=== PATIENT | male | born 1965 | race Caucasian/White ===

== ENCOUNTER 2019-09-07 09:44 | Emergency (ER) | payer SELFPAY ==
[2019-09-07 09:49] VITALS: BP 117/78; PULSE 77; RESP 18; TEMP 36.9; O2SAT 98
--- NOTE | 2019-09-07 10:06 | ED.GENADUL_ITS ---
Discharge Plan Disposition Patient Disposition: HOME Condition: Improving Discharge Details Chief Complaint: GenMedical Clinical Impression: Influenza B Primary Care Provider: Nando Wood ED Provider: Suhail Tavarez Home Meds and New Rx's Prescriptions: New oseltamivir [Tamiflu] 75 mg capsule 75 mg PO BID 5 Days Qty: 9 RF: 0 No Action Spiriva with HandiHaler 1 PUFF capsule, w/inhalation device 1 cap Inhalation DAILY RF: 0 budesonide-formoterol [Symbicort] 60 PUFF HFA aerosol inhaler 2 puff Inhalation BID RF: 0 Discharge Instructions Instructions: Influenza (ED) Additional Instructions: Please go directly to [facility] for assistance in filling your Tamif selam prescription. May use provided inhaler 2 puffs every 4 hours as needed for shortness of breath, wheeze, or cough. Small, frequent sips of fluids to maintain hydration. Tylenol 650 to 1000 mg every 6 hours as needed for fever, aches, pain. Please take Tamiflu as prescribed. Stand Alone Forms: Work Release Medical Decision Making 54-year-old male smoker presents with day 2-1/2 of fever, chills, cough. He has been able to take liquids and solids without difficulty. He works in a local [employer] and due to his illness, sought evaluation in the ER today. He is afebrile with normal vital signs and normal oxygenation. His exam does reveal a few end expiratory wheeze and states that he has run out of prescribed inhaler. Patient had influenza screening performed, was referred for chest x-ray, taught use of albuterol inhaler with spacer. Chest x-ray without focal findings. The patient is positive for influenza B. As it is day 2 I feel he is appropriate to start Tamiflu. [facility] and therefore was evaluated by care management. They have arranged for the patient's prescription to be filled at [facility]. He is improving. We will discharge at this time. Lab Data Lab results reviewed: Yes I reviewed the patient's lab results. Labs: Flu B + HPI General Mode of arrival: ambulatory . Date/Time Provider Initiated Documentation: 09/07/19 09:47 . Limitations to Documentation: no limitations . Information obtained by: patient . History of Present Illness 54 year old M presents to the emergency department with the chief complaint of Fever, cough, described as moderate, and is localized to the chest. Patient reports no radiation. Patient started experiencing this day(s) and it has been intermittent. No relieving factors improve symptom(s), No exacerbating factors reported . Patient notes cough, fever/chills and malaise. Patient did receive the following treatments prior to arrival, none Related Data Home Medications Medication Instructions Recorded Confirmed budesonide-formoterol [Symbicort 2 puff INHALATION BID 02/12/17 09/07/19 160/4.5 Mcg Inhaler] tiotropium bromide [Spiriva 1 cap INHALATION DAILY 02/12/17 09/07/19 Handihaler] oseltamivir [Tamiflu] 75 mg PO BID 5 Days #9 cap 09/07/19 Previous Rx's Medication Instructions Recorded oseltamivir [Tamiflu] 75 mg PO BID 5 Days #9 cap 09/07/19 Allergies Allergy/AdvReac Type Severity Reaction Status Date / Time No Known Allergies Allergy Unverified 09/07/19 09:53 General Stated Complaint: GenMedical MATEO: 3 Review of Systems Narrative: Works at local [employer], [facility], declines referral to social work professor at this time. No vomiting. No shortness of breath. Does continue to smoke. 6 systems reviewed and otherwise negative. [facility] Social History Smoking/Tobacco Use Status: Current every day Tobacco Type: cigarettes Alcohol Intake: never Drug use: Never Substance use type: does not use Do you feel safe at home: Yes Do you feel safe in your relationship?: Yes Exam Narrative Exam Narrative: GEN: awake, alert, oriented 3. Pleasant, well groomed, interactive. HEAD: Normocephalic, atraumatic ENT: Mucous membranes moist, oropharynx unremarkable, External ear exam unremarkable EYES: PERRL, EOMI NECK: Full ROM, no KEENAN, no menigismus CHEST/RESP: Nontender, clear to auscultation bilateral, few scattered end expiratory wheeze CARDIOVASCULAR: RRR, no murmur, rub tyler. 2+ Rad pulse bilateral ABDOMEN: Soft, nontender, no mass. +Bowel sounds EXT: Full ROM, no edema, no rash Neuro: Grossly normal neurologic exam, conversant, interactive. Psych: Speech fluent, thoughts congruent, affect normal Course Vital Signs Vital signs: Vital Signs Temperature 36.9 C 09/07/19 09:49 Pulse 77 09/07/19 09:49 Respiratory Rate 18 09/07/19 09:49 Blood Pressure 117/78 09/07/19 09:49 Pulse Oximetry 98 09/07/19 09:49 Temperature 36.9 C 09/07/19 09:49 Temperature Source Temporal Artery Scan 09/07/19 09:49 Pulse 77 09/07/19 09:49 Respiratory Rate 18 09/07/19 09:49 Respiratory Effort 09/07/19 09:54 Blood Pressure 117/78 09/07/19 09:49 Blood Pressure Position Sitting 09/07/19 09:49 Pulse Oximetry 98 09/07/19 09:49 Oxygen Delivery Method Room Air 09/07/19 09:49 Oxygen Flow Rate 0 09/07/19 09:49 Pain Level 5 09/07/19 09:49 Lab/Test Results Lab/Test Results: 09/07/19 09:52 Nasopharynx Influenza Types A,B Antigen - Pending
[2019-09-07] MEDS: Albuterol HFA 8 GM 60 PUFF INH IH (10:10)
[2019-09-07 10:13] VITALS: RESP 20
--- NOTE | 2019-09-07 10:21 | DI.RAD_ITS ---
EXAM: XR CHEST 2V PA LATERAL CLINICAL HISTORY: Fever and cough, smoker TECHNIQUE: 2D digital imaging was performed. COMPARISON: No exams were available for comparison FINDINGS: The cardiac and mediastinal contours have a normal appearance. The lungs are well inflated and clear . No infiltrate, effusion or pneumothorax is seen. No spine or rib fracture is identified. IMPRESSION: Negative chest x-ray.
[2019-09-07] MEDS: Oseltamivir 75 MG CAP PO (11:02)
[2019-09-07] MEDS: Acetaminophen 500 MG TAB 1000 MG PO (11:58)
--- NOTE | 2019-09-07 12:20 | PDOC.ERCMPRO ---
- If Service Date Differs Date of service: 09/07/19 Time of Service: 12:20 Care Management Progress Note JOEL meets with Pete at the request of ED provider. Pete has been diagnosed with Influenza and his Medicaid has lapsed, so he is unable to fill the prescription for Tamiflu. CM contacts Bahman at [employer] who agrees to pay for the prescription out of the Unmet Needs Funds. JOEL also contacts [employer] to inquire if Pete might qualify for a motel stay while he recovers from the flu, as he is currently homeless. I, however, am unable to speak with anyone, so a message is left for Xiomara at [employer].
== END 2019-09-07 12:17 | disposition home or self-care (01) ==
PROVIDERS: Emergency Provider Emergency Medicine; PCP Physician Assistant
DX: L02.31 Cutaneous abscess of buttock (principal); L03.317 Cellulitis of buttock
CPT/HCPCS: 87449; 99283; 71046

== ENCOUNTER 2019-09-12 07:46 | Emergency (ER) | payer SELFPAY ==
[2019-09-12 07:48] VITALS: BP 125/74; PULSE 62; TEMP 36.8; O2SAT 99
--- NOTE | 2019-09-12 07:53 | W.ED.GENAD ---
Discharge Plan Disposition Patient Disposition: HOME Condition: Good Discharge Details Chief Complaint: Recheck Clinical Impression: Well adult exam Primary Care Provider: Nando Wood ED Provider: Jewell Alan Home Meds and New Rx's Prescriptions: Continued Spiriva with HandiHaler 1 PUFF capsule, w/inhalation device 1 cap Inhalation DAILY RF: 0 budesonide-formoterol [Symbicort] 60 PUFF HFA aerosol inhaler 2 puff Inhalation BID RF: 0 Discharge Instructions Additional Instructions: Continue to encourage water intake. Your exam today is reassuring with no acute findings to suggest acute illness. Please return with any new or worsening symptoms. Stand Alone Forms: Work Release Referrals: Nando Wood [Primary Care Provider] - Medical Decision Making Patient is a 54 year old male presenting today requesting work note to return to work. Patient diagnosed with influenza. JFinished course of tamiflu and feels back to baseline with no persistent symptoms. Feels much improved, exam benign. Work note given. Advised f/u with PCP as needed. He will return with any new/worsening symptoms. All questions and concerns were addressed. HPI General Mode of arrival: ambulatory. Date/Time Provider Initiated Documentation: 09/12/19 07:53. Limitations to Documentation: no limitations. Information obtained by: patient and RN notes reviewed. History of Present Illness 54 year old M presents to the emergency department with the chief complaint of presents for clearance to return to work after being treated for influenza, described as mild (feels improved), Patient started experiencing this week(s) (1) and it has been now resolved. Medication improves symptom(s), (took course of tamiflu) No exacerbating factors reported . Patient notes no other symptoms.. Patient did receive the following treatments prior to arrival, other (tamiflu) Related Data Home Medications Medication Instructions Recorded Confirmed Spiriva with HandiHaler 1 cap INHALATION DAILY 02/12/17 09/07/19 budesonide-formoterol [Symbicort] 2 puff INHALATION BID 02/12/17 09/07/19 Allergies Allergy/AdvReac Type Severity Reaction Status Date / Time No Known Allergies Allergy Unverified 09/07/19 09:53 General Stated Complaint: Recheck MATEO: 5 Review of Systems Constitutional Constitutional: Reports as per HPI, Denies chills, Denies fatigue, Denies fever(s) and Denies headache(s) Eyes Eyes: Reports as per HPI, Denies eye discharge and Denies irritation ENT Ears, Nose, Mouth, and Throat: Reports as per HPI and Denies headache(s) Cardiovascular Cardiovascular: Reports as per HPI, Denies chest pain and Denies dyspnea Respiratory Respiratory: Reports as per HPI and Denies dyspnea Gastrointestinal Gastrointestinal: Reports as per HPI, Denies abdominal pain, Denies change in bowel habits, Denies nausea and Denies vomiting Integumentary/Breasts Skin/Breast: Reports as per HPI and Denies rash Neurologic Neurologic: Reports as per HPI and Denies headache(s) Endocrine Endocrine: Denies fatigue [facility] Social History Smoking/Tobacco Use Status: Current every day Tobacco Type: cigarettes Alcohol Intake: never Drug use: Never Substance use type: does not use Do you feel safe at home: Yes Do you feel safe in your relationship?: Yes Exam Const General: cooperative, healthy appearing, comfortable, no acute distress, well developed and well groomed Nutritional Appearance: average body habitus and well nourished Orientation: alert and awake [facility] Head: normal to inspection, normocephalic and atraumatic Ears: hearing grossly normal bilaterally General nose exam: external nose normal Face and sinus: normal facial exam and face symmetric Mouth: oral mucosae normal and lip normal Eyes General: appearance normal, both eyes and all related structures Resp Effort & Inspection: normal respiratory effort, able to speak in complete sentences and no respiratory distress Auscultation: clear to auscultation bilaterally, no rales, no rhonchi and no wheezes Cardio Rate: regular rate Rhythm: regular rhythm Heart Sounds: S1 normal and S2 normal Skin General skin exam: no rashes or lesions noted Neuro General: alert and awake Cognition: normal cognition Speech: speech normal Gait: normal gait Psych Appearance: grossly normal and well kempt Mental Status: mental status grossly normal Speech and Movement: speech and movement normal Course Vital Signs Vital signs: Vital Signs Temperature 36.8 C 09/12/19 07:48 Pulse 62 09/12/19 07:48 Blood Pressure 125/74 09/12/19 07:48 Pulse Oximetry 99 09/12/19 07:48 Temperature 36.8 C 09/12/19 07:48 Temperature Source Oral 09/12/19 07:48 Pulse 62 09/12/19 07:48 Respiratory Effort Non-Labored 09/12/19 07:50 Blood Pressure 125/74 09/12/19 07:48 Blood Pressure Position Sitting 09/12/19 07:48 Pulse Oximetry 99 09/12/19 07:48 Oxygen Delivery Method Room Air 09/12/19 07:48 Oxygen Flow Rate 0 09/12/19 07:48 Pain Level 0 09/12/19 07:48
== END 2019-09-12 08:01 | disposition home or self-care (01) ==
PROVIDERS: Emergency Provider Physician Assistant; PCP Physician Assistant
DX: Z71.1 Person with feared health complaint in whom no diagnosis is made (principal); Z87.09 Personal history of other diseases of the respiratory system
CPT/HCPCS: 99281

== ENCOUNTER 2022-09-19 18:45 | Outpatient (REF) | payer MEDICAID, SELFPAY ==
[2022-09-19 21:04] LABS: Abs Immature Grans 0.04 10^3/uL (0.0-0.06); Absolute Basophil Count 0.05 10^3/uL (0.0-0.2); Absolute Eosinophil Count 0.04 10^3/uL (0.0-0.7); Absolute Monocyte Count 0.64 10^3/uL (0.1-0.8); Basophils % 0.4; Eosinophils % 0.3; HCT 43.1 % (40.0-50.0); HGB 14.3 g/dL (13.5-17.5); Immature Grans % 0.3; Lymphocytes % 16.5; MCH 32.3 pg (27.0-33.0); MCHC 33.2 % (32.0-36.0); MCV 97 fL (80-95); MPV 10.7 fL (8.0-11.0); Neutrophils % 77.5; Platelet Count 263 10^3/uL (130-400); RBC 4.43 10^6/uL (4.36-5.78); RDW 12.8 % (11.8-14.1); RDW-SD 45.8 fL; WBC 12.72 10^3/uL (4.4-10.8)
[2022-09-19 21:05] LABS: Absolute Neutrophil Count 9.86 10^3/uL (1.2-6.7)
[2022-09-19 21:19] LABS: Hemoglobin A1C 5.8 % (<5.7)
[2022-09-19 21:26] LABS: ALT 27 U/L (16-63); AST 22 U/L (15-37); Albumin 4.4 g/dL (3.4-5.0); Alkaline Phosphatase 124 U/L (46-116); Anion Gap 8.8 mmol/L (3-11); BUN 19 mg/dL (7-18); Bilirubin, Total 0.4 mg/dL (0.2-1.0); CO2 27.2 mmol/L (21.0-32.0); CREATININE 1.1 mg/dL (0.70-1.30); Calcium 9.8 mg/dL (8.5-10.1); Chloride 105 mmol/L (98-107); Estimated GFR 78.79 (mL/min/1.73m2); Glucose 95 mg/dL (74-106); Potassium 3.9 mmol/L (3.5-5.1); Sodium 141 mmol/L (136-145); TSH (W/Ref FT4) 2.53 uIU/mL (0.36-3.74); Total Protein 7.9 g/dL (6.4-8.2)
== END 2022-09-19 18:46 | disposition home or self-care (01) ==
LOC: NCHCN 18:45
PROVIDERS: PCP Physician Assistant; Visit Provider Physician Assistant
DX: R19.7 Diarrhea, unspecified (principal); K21.9 Gastro-esophageal reflux disease without esophagitis; K92.1 Melena; R73.09 Other abnormal glucose
CPT/HCPCS: 80053; 83036; 84443; 85025

== ENCOUNTER 2022-09-21 00:53 | Outpatient (CLI) | payer MEDICAID, SELFPAY ==
--- NOTE | 2022-09-21 | DI.RAD_ITS ---
Exam(s) XR LUMBAR SPINE COMPLETE EXAM: XR LUMBAR SPINE COMPLETE CLINICAL HISTORY: LT SIDE LUMBAGO WITH SCIATICA, M54.42. TECHNIQUE: 2D digital imaging was performed. Five views. COMPARISON: No exams were available for comparison FINDINGS: BONES: No fracture or destructive lesion. Vertebral body heights are maintained. Minimal facet hyper trophy identified. DISKS: Mild narrowing of the L1-2 disc with small endplate osteophytes. Severe narrowing of the L4-5 disc and moderate-sized endplate osteophytes. Mild disc space narrowing at L5-S1. The remaining in tervertebral disc spaces are maintained. ALIGNMENT: Lumbar spinal alignment is within normal limits. SOFT TISSUE: abdominal aorta calcified but normal in diameter. IMPRESSION: Degenerative disc changes greatest at L4-5. DATA REPOSITORY: RADIATION DOSE DELIVERED:
== END 2022-09-21 01:13 ==
LOC: DI 00:54
PROVIDERS: PCP Physician Assistant; Visit Provider Physician Assistant
DX: M51.36 Other intervertebral disc degeneration, lumbar region (principal)
CPT/HCPCS: 72110

== ENCOUNTER 2022-09-21 15:27 | Outpatient (REF) | payer MEDICAID, SELFPAY ==
[2022-09-22 11:04] LABS: Campylobacter PCR Negative (Negative); Salmonella PCR Negative (Negative); Shiga Toxin PCR Negative (Negative); Shigella/Enteroinvasive Ecoli Negative (Negative)
[2022-09-24 14:22] LABS: Helicobacter pylori Ag, Feces Negative (Negative)
== END 2022-09-21 15:28 | disposition home or self-care (01) ==
LOC: NCHCN 15:27
PROVIDERS: PCP Physician Assistant; Visit Provider Physician Assistant
DX: R19.7 Diarrhea, unspecified (principal); K21.9 Gastro-esophageal reflux disease without esophagitis; K92.1 Melena
CPT/HCPCS: 87329; 87338; 87493; 87505; 83630; 87177